=== PATIENT | female | born 1940 | race Hispanic/Latino ===

== ENCOUNTER 2019-04-26 22:36 | Observation (INO) | payer OTHER, MEDICARE ==
[~2019-04-26] VITALS: Ht 149.9 cm; Wt 60.4 kg
[~2019-04-26 22:36] MED LIST: ALEN70TA10 PO; FURO40TA5 PO; INSLAN SQ; LEVO75 PO; OMEP40CA13 PO; RAMI2.5C16 PO
[2019-04-26] MEDS ORDERED: ONDANSETRON HCL 4 MG/2 ML VIAL ONE (23:14)
[2019-04-26] MEDS ORDERED: SODIUM CHLORIDE 0.9% 1000ML 1,000 ML IV ONE (23:15)
[2019-04-26 23:17] LABS: POTASSIUM 3.3 mmol/L (3.5-5.1)
[2019-04-26 23:18] LABS: BASOPHILS % (AUTO) 1.3 % (0.0-5.0); EOSINOPHILS % (AUTO) 1.1 % (0.0-8.0); HEMATOCRIT 33.4 % (36-48); LYMPHOCYTES % (AUTO) 21.9 % (21.0-51.0); MEAN CORPUSCULAR HEMOGLOBIN 31.7 pg (27.0-33.0); MEAN CORPUSCULAR VOLUME 95.9 fL (79-99); NEUTROPHILS % (AUTO) 65.7 % (40.0-77.0); PLATELET COUNT (AUTO) 283 K/uL (130-400); RED BLOOD CELL COUNT(AUTO) 3.48 MIL/uL (4.00-5.50); RED CELL DISTRIBUTION WIDTH 12.8 % (11.0-15.5); WHITE BLOOD COUNT (AUTO) 7.8 K/uL (4.8-10.8)
[2019-04-26 23:35] LABS: INR 0.95 (0.85-1.15); PARTIAL THROMBOPLASTIN TIME 26.3 SEC (26.3-35.5)
[2019-04-26 23:38] LABS: BILIRUBIN,TOTAL 0.4 mg/dL (0.2-1.0); TOTAL PROTEIN, SERUM 6.8 g/dL (6.0-8.3)
[2019-04-27 00:50] LABS: APPEARANCE,URINE Turbid (CLEAR); BILIRUBIN,URINE Negative (NEGATIVE); COLOR,URINE Yellow (YELLOW); GLUCOSE, URINE (UA) 250 mg/dL (NEGATIVE); KETONES,URINE 15 mg/dL (NEGATIVE); LEUKOCYTE ESTERASE ,URINE Moderate (NEGATIVE); NITRATE,URINE Negative (NEGATIVE); OCCULT BLOOD,URINE Negative (NEGATIVE); PROTEIN,URINE 300 mg/dL (NEGATIVE)
[2019-04-27 01:04] LABS: BACTERIA,URINE Many /HPF (None Seen); MUCUS,URINE Few LPF (None Seen); SQUAMOUS EPITHELIAL CELL,UR Rare /HPF (0-2)
[2019-04-27] MEDS ORDERED: ONDANSETRON HCL 4 MG/2 ML VIAL ONE (03:25)
[2019-04-27] MEDS ORDERED: ZOSYN 3.375GM+NS 50ML 50 ML IV ONE (03:25)
[2019-04-27] MEDS ORDERED: SODIUM CHLORIDE 0.9% 1000ML 0 ML IV ONE (03:27)
[2019-04-27] MEDS ORDERED: LACTATED RINGERS 1000ML 1,000 ML IV ONE (03:43)
--- NOTE | 2019-04-27 05:04 | NUR ---
ADMISSION. PT TRANSFERRED FROM ER INTO ROOM 431 VIA STRETCHER. PT AWAKE, ALERT AND RESPONSIVE. FAMILY AT BEDSIDE. NO C/O PAIN OR N/V AT THIS TIME. PT AND FAMILY ORIENTED TO ROOM, CALL MIX WITHIN REACH, BED IN LOWEST POSITION. Addendum: 04/27/19 at 0509 by CONCHIS SANTAMARIA RN Amended: Links added.
[2019-04-27 05:05] VITALS: BP 152/69
[2019-04-27] MEDS ORDERED: MORPHINE SULFATE 2 MG/ML 1ML SYG IVP PRN (05:30)
[2019-04-27] MEDS: LACTATED RINGERS 1000ML 1,000 ML IV SCH ×3 (05:30→21:17)
[2019-04-27] MEDS ORDERED: MORPHINE SULFATE 4 MG/1ML SYG IVP PRN (05:30)
[2019-04-27] MEDS ORDERED: ONDANSETRON HCL 4 MG/2 ML VIAL IVP PRN (05:30)
[2019-04-27] MEDS ORDERED: ACETAMINOPHEN 325 MG TAB PO PRN (05:30)
[2019-04-27] MEDS: ZOSYN 3.375GM+NS 50ML 50 ML IV SCH ×3 (05:53→21:17)
[2019-04-27] MEDS ORDERED: DOCU240C88 PO (05:57)
[2019-04-27 07:55] VITALS: BP 190/78
[2019-04-27] MEDS: FAMOTIDINE/PF 20 MG/2 ML VIAL IV SCH ×2 (08:46→21:17)
--- NOTE | 2019-04-27 09:56 | NUR ---
TO MRI PATIENT TRANSFERRED TO MRI FOR MRCP VIA WHEELCHAIR. SHE IS IN STABLE CONDITION.
--- NOTE | 2019-04-27 10:28 | NUR ---
BACK FROM MRI PATIENT RETURNED FROM MRI STUDY IN STABLE CONDITION. FAMILY PRESENT IN ROOM.
[2019-04-27 11:12] VITALS: BP 157/66
--- NOTE | 2019-04-27 15:58 | NUR ---
[facility] CM met with and family pt discussed dc plans. Pt is assist with ADL's, son and daughter in law lives w/pt. Pt has a provider 25hrs/wk, lakesha bailey, goes to [facility] Thu-Thu. Denies any other equipments/services. Pt feels safe to go back home, son and daughter in law able to assist with transportation and needs as necessary. DC plan to home once stable. CM to cont to follow up. Addendum: 04/27/19 at 1600 by PASTORA WOODSON LVN CM Amended: Links added.
[2019-04-27 16:01] VITALS: BP 146/56
[2019-04-27] MEDS: METOCLOPRAMIDE 10 MG/2 ML VIAL IVP SCH (17:56)
[2019-04-27 19:33] VITALS: BP 147/63
[2019-04-27 23:38] VITALS: BP 132/58
[2019-04-28 03:00] VITALS: BP 132/68
[2019-04-28] MEDS: LACTATED RINGERS 1000ML 1,000 ML IV SCH ×2 (04:14→14:26)
[2019-04-28 04:29] LABS: HEMATOCRIT 30.3 % (36-48); MEAN CORPUSCULAR HEMOGLOBIN 31.8 pg (27.0-33.0); MEAN CORPUSCULAR HGB CONC 32.9 g/dL (32.0-36.0); MEAN CORPUSCULAR VOLUME 96.6 fL (79-99); PLATELET COUNT (AUTO) 227 K/uL (130-400); RED BLOOD CELL COUNT(AUTO) 3.13 MIL/uL (4.00-5.50); RED CELL DISTRIBUTION WIDTH 12.8 % (11.0-15.5); WHITE BLOOD COUNT (AUTO) 7.6 K/uL (4.8-10.8)
[2019-04-28 04:41] LABS: CREATININE 1.4 mg/dL (0.5-1.5); POTASSIUM 3.2 mmol/L (3.5-5.1)
[2019-04-28] MEDS: ZOSYN 3.375GM+NS 50ML 50 ML IV SCH ×2 (05:51→14:17)
[2019-04-28] MEDS: METOCLOPRAMIDE 10 MG/2 ML VIAL IVP SCH ×2 (06:29→11:17)
[2019-04-28 08:12] VITALS: BP 127/62
[2019-04-28] MEDS: FAMOTIDINE/PF 20 MG/2 ML VIAL IV SCH (09:19)
[2019-04-28] MEDS ORDERED: POTASSIUM CHLORIDE 10% ELIXIR 20 MEQ/15 ML UDCUP PO PRN (10:15)
[2019-04-28] MEDS ORDERED: POTASSIUM CHLORIDE 20MEQ/100ML 100 ML IV PRN (10:15)
[2019-04-28] MEDS ORDERED: METO5 PO (10:21)
[2019-04-28] MEDS ORDERED: LEVO500T2 PO (10:21)
[2019-04-28 11:07] VITALS: BP 183/86
[2019-04-28] MEDS: POTASSIUM CHLORIDE 20 MEQ ERTAB PO PRN ×3 (11:18→15:26)
--- NOTE | 2019-04-28 15:30 | NUR ---
INSTRUCTIONS DISCHARGE INSTRUCTIONS GIVEN TO PATIENT AND FAMILY USING TEACH BACK. NEW PRESCRIPTIONS PLACED IN PACKET ALONG WITH ALL PRINTED INFORMATION AND MD INSTRUCTIONS. IV WAS REMOVED WITH TIP INTACT. DIRECT PRESSURE WAS APPLIED UNTIL BLEEDING WAS CONTROLLED THEN SITE COVERED WITH GAUZE AND SECURED WITH A BAND-AID. F/U APPOINTMENT WILL BE MADE BY DAUGHTER PER REQUEST. NO QUESTIONS OR CONCERNS VOICED. PENDING RIDE HOME.
== END 2019-04-28 15:48 | disposition home or self-care (01) ==
LOC: EDH 22:36 → EDHIP 04-27 03:10 → 4AH 04-27 04:52
PROVIDERS: ADMIT Internal Medicine; ATTEND Internal Medicine
DX: R10.9 Unspecified abdominal pain (principal); R11.0 Nausea; E86.0 Dehydration; E11.9 Type 2 diabetes mellitus without complications; N17.9 Acute kidney failure, unspecified; N39.0 Urinary tract infection, site not specified; I51.7 Cardiomegaly; Z90.49 Acquired absence of other specified parts of digestive tract; Z96.643 Presence of artificial hip joint, bilateral
CPT/HCPCS: 36415 ×2; 70450; 74176; 74181; 76705; 80048; 80053; 81001; 82550; 82948 ×6; 84484; 85025; 85027; 85610; 85730; 87088; 93005; 96361; 96365; 96366 ×2; 96375; 96376 ×2; 97039 ×2; 97116 ×2; 97161; 99284; G0378 ×37; G8978; G8979; G8980; G8981; G8982; G8983; J2405 ×2; J2543 ×5; J2765 ×3; J3490 ×3; J7030; J7120 ×4